=== PATIENT | female | born 1985 | race Caucasian/White ===

== ENCOUNTER 2019-04-26 20:13 | Emergency (ER) | payer MEDICAID ==
[~2019-04-26] VITALS: Ht 167.6 cm; Wt 85.0 kg
[2019-04-26 20:18] VITALS: BP 144/84
[2019-04-26] MEDS ORDERED: [UNRECOGNIZED DRUG - CODE] TP (22:04)
[2019-04-26] MEDS ORDERED: [UNRECOGNIZED DRUG - CODE] TOP (22:04)
== END 2019-04-26 22:30 | disposition home or self-care (01) ==
LOC: ER 20:15
DX: Z43.6 Encounter for attention to other artificial openings of urinary tract (principal); Z88.2 Allergy status to sulfonamides; Z88.8 Allergy status to other drugs, medicaments and biological substances; Z91.048 Other nonmedicinal substance allergy status
CPT/HCPCS: 99281

== ENCOUNTER 2019-04-28 09:17 | Emergency (ER) | payer MEDICAID ==
[~2019-04-28] VITALS: Ht 167.6 cm; Wt 86.0 kg
[~2019-04-28 09:17] MED LIST: [UNRECOGNIZED DRUG - CODE] TOP; [UNRECOGNIZED DRUG - CODE] TP
--- NOTE | 2019-04-28 09:55 | NUR ---
Pt not in room
[2019-04-28 10:26] LABS: BASOPHILS # (AUTO) 0.1 X10'3 (0-0.2); BASOPHILS % (AUTO) 0.5 % (0-1); EOSINOPHILS # (AUTO) 0.2 X10'3 (0-0.9); EOSINOPHILS % (AUTO) 1.4 % (0-6); HEMATOCRIT 42.1 % (35.0-45.0); LYMPHOCYTES # (AUTO) 1.7 X10'3 (1.1-4.8); LYMPHOCYTES % (AUTO) 13.3 % (21-51); MEAN CORPUSCULAR HEMOGLOBIN 29.2 PG (27.0-31.0); MEAN CORPUSCULAR HGB CONC 33.2 g/dL (33.0-36.5); MEAN CORPUSCULAR VOLUME 87.9 FL (78-98); MEAN PLATELET VOLUME 8.1 FL (7.4-10.4); MONOCYTES # (AUTO) 0.7 X10'3 (0-0.9); MONOCYTES % (AUTO) 5.7 % (2-12); NEUTROPHILS % (AUTO) 79.1 % (42-75); PLATELET COUNT 278 X10'3 (140-440); RED BLOOD COUNT 4.79 X10'6 (4.20-5.60); RED CELL DISTRIBUTION WIDTH 13.3 % (11.5-14.5); WHITE BLOOD COUNT 12.7 X10'3 (4.5-11.0)
[2019-04-28 10:32] LABS: CLARITY,URINE CLOUDY (Clear); COLOR,URINE YELLOW (Yellow); GLUCOSE, URINE NEGATIVE (Neg); KETONES,URINE NEGATIVE (Neg); LEUKOCYTE ESTERASE ,URINE LARGE (Neg); NITRITES, URINE POSITIVE (Neg); OCCULT BLOOD,URINE LARGE (Neg); PH,URINE 7.5 (4.8-8.0); PROTEIN,URINE 100 mg/dl (Neg); URINE HCG NEGATIVE (NEG); UROBILINOGEN,URINE 0.2 E.U/dL (0.2-1.0)
[2019-04-28 10:37] LABS: UA COLLECTION TYPE CLN CATCH MIDSTREAM
[2019-04-28 10:38] LABS: BACTERIA,URINE 4+ /HPF (Neg); MUCUS STRANDS FEW /LPF (Neg); RBC,URINE 20-50 /HPF (0-2); SQUAMOUS EPITHELIAL CELL,UR MODERATE /LPF (FEW); WBC,URINE TNTC /HPF (0-4)
[2019-04-28 10:40] LABS: ALANINE AMINOTRANSFERASE 26 U/L (12-78); ALBUMIN 3.8 G/DL (3.4-5.0); ALKALINE PHOSPHATASE 70 IU/L (46-116); ANION GAP 6 (8-16); ASPARTATE AMINO TRANSFERASE 21 U/L (10-37); BILIRUBIN,TOTAL 0.3 MG/DL (0.1-1.0); BLOOD UREA NITROGEN 15 MG/DL (7-18); BUN/CREATININE RATIO 16.9 (6.6-38.0); CALCIUM 9.5 MG/DL (8.5-10.1); CHLORIDE 108 MMOL/L (99-107); CREATININE 0.89 MG/DL (0.40-0.90); GLUCOSE 95 MG/DL (70-104); POTASSIUM 4.2 MMOL/L (3.5-5.1); SODIUM 143 MMOL/L (135-145); TOTAL CARBON DIOXIDE 29.2 MMOL/L (24-32); TOTAL PROTEIN 7.8 G/DL (6.4-8.2); eGFR 74 ML/MIN
[2019-04-28 12:00] VITALS: BP 124/63
[2019-04-28] MEDS ORDERED: ACET-1008 PO (12:46)
[2019-04-28] MEDS ORDERED: ONDA4TAB6 PO (12:46)
[2019-04-28] MEDS ORDERED: CEPH500C5 PO (12:46)
== END 2019-04-28 13:10 | disposition home or self-care (01) ==
LOC: ER 09:18
DX: N12 Tubulo-interstitial nephritis, not specified as acute or chronic (principal); Z88.2 Allergy status to sulfonamides; Z88.8 Allergy status to other drugs, medicaments and biological substances; Z79.899 Other long term (current) drug therapy
CPT/HCPCS: 36415; 80053; 81001; 81025; 85025; 99283

== ENCOUNTER 2024-06-06 13:36 | Emergency (ER) | payer MEDICAID ==
[~2024-06-06] VITALS: Ht 167.6 cm; Wt 79.3 kg
[~2024-06-06 13:36] MED LIST changes: +ACET-1008 PO; +ONDA4TAB6 PO
[2024-06-06 14:06] VITALS: BP 114/69; PULSE 76; RESP 18; TEMP 97.5; O2SAT 99
== END 2024-06-06 14:21 | disposition home or self-care (01) ==
LOC: ER 13:39
DX: Z02.9 Encounter for administrative examinations, unspecified (principal); Z88.2 Allergy status to sulfonamides; Z88.8 Allergy status to other drugs, medicaments and biological substances; Z79.899 Other long term (current) drug therapy; Z87.442 Personal history of urinary calculi
CPT/HCPCS: 99281